=== PATIENT | female | born 1960 | race Caucasian/White ===

== ENCOUNTER 2019-09-09 09:40 | Outpatient (CLI) | payer OTHER, SELFPAY ==
--- NOTE | ~2019-09-09 | CT_ITS ---
EXAMINATION: CT lung screening DATE: 09/09/2019 10:02 INDICATION: Z87.891 Personal history of nicotine dependence TECHNIQUE: Computed tomography (CT) of the chest was performed without intravenous contrast. Addition al 3D reconstructions utilizing coronal maximum intensity projection (MIP) were performed. Automated exposure control and iterative reconstruction technique were employed. The dose-length product was 11 7.46 mGy-cm. COMPARISON: None FINDINGS: Small calcified nodule in the lingula consistent with old granulomatous disease. There are few additi onal scattered <3 mm noncalcified pulmonary nodules in both lungs predominantly in the upper lobes. T here are a few small ill-defined groundglass nodules without evident solid component in the right upp er lobe on the the largest measuring approximately 9 mm. Mild discoid atelectasis in the right lower lobe. No pulmonary edema or pleural effusion. Heart size is normal. No pericardial effusion. Thoracic aorta is normal in caliber with no dissection. No pathologically enlarged thoracic lymphadenopathy. Approximately 5 mm hypodense likely proteinaceous/hemorrhagic cyst at the upper pole of the right kid faina. Visualized upper abdomen is otherwise unremarkable. Mild thoracic spondylosis with chronic mild anterior wedging at T6 and T7. IMPRESSION: 1. A few scattered tiny solid and <10 mm groundglass nodules. Lung-RADS category 2: Benign appearance or behavior. Continue annual screening with noncontrast low-dose chest CT in 12 months. Reviewed, dictated and finalized at location A. STRY HUNTER IMPRESSION: 1. A few scattered tiny solid and <10 mm groundglass nodules. Lung-RADS categor y 2: Benign appearance or behavior. Continue annual screening with noncontrast low-dose chest CT in 12 months.
--- NOTE | 2019-09-11 00:04 | WPDPFTINT ---
PFT Interpretation PFT Interpretation: DOS: 09/09/2019 REQUESTING: Dr Sheppard REASON FOR TESTING: COPD, shortness of breath PULMONARY FUNCTION TESTS Results are reproducible. Spirometry: Normal FEV1, FVC, with reduced FEV1%. Extremely low NMH52-08%. After bronchodilator, there is no change in flows. Lung volumes: Mild hyperinflation, TLC 130%. Moderate air trapping, RV is 141%. Increased airway resistance, 192%. Diffusion: DLCO normal 92%. Flow volume loop: Normal after bronchodilator administered. IMPRESSION: Mild obstructive ventilatory impairment with a severe small airways pattern, no response to bronchodilators, with mild hyperinflation and moderate air trapping. Lack of response to bronchodilator should not preclude use if clinically indicated. Jeanne Sheppard MD
== END 2019-09-09 09:41 | disposition home or self-care (01) ==
PROVIDERS: Visit Provider Internal Medicine Critical Care Medicine
DX: J44.9 Chronic obstructive pulmonary disease, unspecified (principal); Z12.2 Encounter for screening for malignant neoplasm of respiratory organs; R91.8 Other nonspecific abnormal finding of lung field; Z87.891 Personal history of nicotine dependence
CPT/HCPCS: 94060; 94726; 94729; G0297

== ENCOUNTER → 2020-09-15 10:19 | Outpatient (CLI) | payer OTHER, SELFPAY ==
--- NOTE | ~2020-09-15 | XR_ITS ---
EXAMINATION: XR hip BI 2V w AP pelvis DATE: 09/15/2020 10:51 INDICATION: Bilateral inguinal hip pain TECHNIQUE: AP view of the pelvis and two views of each hip were obtained. COMPARISON: None. FINDINGS: Bone alignment is normal. There is no fracture. There is moderate right and moderate to sev ere left hip osteoarthritis. Phleboliths are noted in the pelvis. IMPRESSION: 1. Bilateral hip osteoarthritis. Reviewed, dictated and finalized at location A. CAL CLAIMS ANALYST
== END ==
PROVIDERS: PCP Physician Assistant; Visit Provider Physician Assistant
DX: M16.0 Bilateral primary osteoarthritis of hip (principal)
CPT/HCPCS: 73521

== ENCOUNTER 2020-10-19 11:05 | Outpatient (CLI) | payer OTHER, SELFPAY ==
--- NOTE | ~2020-10-19 | CT_ITS ---
EXAMINATION: CT lung screening DATE: 10/19/2020 11:29 INDICATION: Personal history of nicotine dependence, prior smoker with 40 pack year history TECHNIQUE: Computed tomography (CT) of the chest was performed without intravenous contrast. The dose -length product (DLP) was 159.20 mGy-cm. Automated exposure control and iterative reconstruction tech [employer] were employed. COMPARISON: 09/09/2019 FINDINGS: There is mild emphysema. There is a stable 9 mm nonsolid nodule of the right upper lobe. No new pulmonary nodules are identified. A few tiny scattered 1 to 2 mm nodules in the upper lobes are unchanged. There is no pleural effusion or pneumothorax. No pathologically enlarged thoracic lymph no kimmy are identified. The heart size is normal. There is mild thoracic spondylosis. IMPRESSION: 1. Lung-RADS category 2: Benign appearance or behavior. Continue annual screening with noncontrast lo w-dose chest CT in 12 months. Reviewed, dictated and finalized at location B. IMPRESSION: 1. Lung-RADS category 2: Benign appearance or behavior. Continue annual screeni ng with noncontrast low-dose chest CT in 12 months.
== END 2020-10-19 11:06 | disposition home or self-care (01) ==
PROVIDERS: PCP Physician Assistant; Visit Provider Nurse Practitioner Family
DX: Z12.2 Encounter for screening for malignant neoplasm of respiratory organs (principal); Z87.891 Personal history of nicotine dependence
CPT/HCPCS: 71271

== ENCOUNTER 2020-11-02 07:41 | Outpatient (CLI) | payer OTHER, SELFPAY ==
--- NOTE | ~2020-11-02 | XR_ITS ---
EXAMINATION: XR lg joint inject/asp w image DATE: 11/02/2020 08:53 INDICATION: Right hip arthritis. TECHNIQUE: A time-out was performed to verify the patient's name, date of , and procedure to b e performed. The procedure including the risks, benefits, and alternatives was discussed with the pat ient. Risks discussed included bleeding and infection. The patient understood the risks and agreed to proceed. The skin overlying the right hip joint was prepped and draped in usual sterile fashion. A nesthetic was administered with 1% lidocaine subcutaneously. A 22 G needle was advanced under fluoro scopic guidance into the joint. Injection of 1 mL of Omnipaque 240 confirmed intra-articular positio n of the needle. Subsequently, injectate consisting of 2 mL 0.5% bupivacaine and 1 mL 80 mg/mL Depo- Medrol was instilled. The needle was removed and the entry site was cleaned and dressed. There were no immediate complications. Fluoroscopy exposure time was 0.0 minutes. The total number of images wa s 2. FINDINGS: Real-time fluoroscopy demonstrates the needle in the right hip joint. Patient's pain prior to procedure:07/18. Patient's pain following the procedure: 07/18. IMPRESSION: 1. Fluoroscopy guided right hip joint injection of local anesthetic and steroid . Reviewed, dictated and finalized at location A.
--- NOTE | ~2020-11-02 | XR_ITS ---
EXAMINATION: XR lg joint inject/asp add DATE: 11/02/2020 08:58 INDICATION: Left hip arthritis. TECHNIQUE: A time-out was performed to verify the patient's name, date of , and procedure to b e performed. The procedure including the risks, benefits, and alternatives was discussed with the pat ient. Risks discussed included bleeding and infection. The patient understood the risks and agreed to proceed. The skin overlying the left hip joint was prepped and draped in usual sterile fashion. An esthetic was administered with 1% lidocaine subcutaneously. A 22 G needle was advanced under fluoros copic guidance into the joint. Injection of 1 mL of Omnipaque 240 confirmed intra-articular position of the needle. Subsequently, injectate consisting of 2 mL 0.5% bupivacaine and 1 mL 80 mg/mL Depo-M edrol was instilled. The needle was removed and the entry site was cleaned and dressed. There were no immediate complications. Fluoroscopy exposure time was 0.0 minutes. The total number of images was 2. FINDINGS: Real-time fluoroscopy demonstrates the needle in the left hip joint. Patient's pain prior t o procedure:07/18. Patient's pain following the procedure: 07/18. IMPRESSION: 1. Fluoroscopy guided left hip joint injection of local anesthetic and steroid . Reviewed, dictated and finalized at location A.
== END 2020-11-02 07:42 | disposition home or self-care (01) ==
PROVIDERS: PCP Physician Assistant; Visit Provider Nurse Practitioner Family
DX: M17.0 Bilateral primary osteoarthritis of knee (principal)
CPT/HCPCS: 20610; 77002; J1040; Q9966

== ENCOUNTER 2021-01-20 09:40 | Outpatient (CLI) | payer OTHER, SELFPAY ==
--- NOTE | ~2021-01-20 | XR_ITS ---
EXAMINATION: XR lg joint inject/asp w image DATE: 01/20/2021 10:27 INDICATION: Right hip arthritis. TECHNIQUE: A time-out was performed to verify the patient's name, date of , and procedure to b e performed. The procedure including the risks, benefits, and alternatives was discussed with the pat ient. Risks discussed included bleeding and infection. The patient understood the risks and agreed to proceed. The skin overlying the right hip joint was prepped and draped in usual sterile fashion. A nesthetic was administered with 1% lidocaine subcutaneously. A 22 G needle was advanced under fluoro scopic guidance into the joint. Injection of 1 mL of Omnipaque 240 confirmed intra-articular positio n of the needle. Subsequently, injectate consisting of 2 mL 0.5% bupivacaine and 1 mL 80 mg/mL Depo- Medrol was instilled. The needle was removed and the entry site was cleaned and dressed. There were no immediate complications. Fluoroscopy exposure time was 0.0 minutes. The total number of images wa s 2. FINDINGS: Real-time fluoroscopy demonstrates the needle in the right hip joint. Patient's pain prior to procedure:04/17. Patient's pain following the procedure: 11/15. IMPRESSION: 1. Fluoroscopy guided right hip joint injection of local anesthetic and steroid with decrease in the patient's presenting pain. Reviewed, dictated and finalized at location A.
--- NOTE | ~2021-01-20 | XR_ITS ---
EXAMINATION: XR lg joint inject/asp add DATE: 01/20/2021 10:28 INDICATION: Left hip arthritis. TECHNIQUE: A time-out was performed to verify the patient's name, date of , and procedure to b e performed. The procedure including the risks, benefits, and alternatives was discussed with the pat ient. Risks discussed included bleeding and infection. The patient understood the risks and agreed to proceed. The skin overlying the left hip joint was prepped and draped in usual sterile fashion. An esthetic was administered with 1% lidocaine subcutaneously. A 22 G needle was advanced under fluoros copic guidance into the joint. Injection of 1 mL of Omnipaque 240 confirmed intra-articular position of the needle. Subsequently, injectate consisting of 2 mL 0.5% bupivacaine and 1 mL 80 mg/mL Depo-M edrol was instilled. The needle was removed and the entry site was cleaned and dressed. There were no immediate complications. Fluoroscopy exposure time was 0.0 minutes. The total number of images was 2. FINDINGS: Real-time fluoroscopy demonstrates the needle in the left hip joint. Patient's pain prior t o procedure:11/15. Patient's pain following the procedure: 07/18. IMPRESSION: 1. Fluoroscopy guided left hip joint injection of local anesthetic and steroid with decrease in the p atient's presenting pain. Reviewed, dictated and finalized at location A. IMPRESSION: 1. Fluoroscopy guided left hip joint injection of local anesthetic and steroid with decrease in the patient's presenting pain.
== END 2021-01-20 09:41 | disposition home or self-care (01) ==
LOC: ANHIMG 09:41
PROVIDERS: PCP Physician Assistant; Visit Provider Nurse Practitioner Family
DX: M16.0 Bilateral primary osteoarthritis of hip (principal)
CPT/HCPCS: 20610; 77002; Q9966

== ENCOUNTER 2021-04-12 07:56 | Outpatient (CLI) | payer OTHER, SELFPAY ==
--- NOTE | 2021-04-12 08:55 | ECG_ITS ---
Measurements Intervals [place] Rate: 69 P: 64 CO: 149 QRS: -5 QRSD: 101 T: 35 QT: 386 QTc: 414 Interpretive Statements SINUS RHYTHM POSSIBLE LEFT ATRIAL ENLARGEMENT INCOMPLETE RIGHT BUNDLE BRANCH BLOCK DELAYED PRECORDIAL R/S TRANSITION BASELINE ARTIFACT- I, II, AVR, AVL BORDERLINE ECG Electronically Signed On 04-12-2021 9:19:12 CDT by Yasir Navas D.O.
[2021-04-12 09:48] LABS: Add Urine Microscopic? YES; Appearance Urine Clear (Clear); Bilirubin Urine Negative (Negative); Color Urine Amber (Yellow); Glucose Urine UA Negative (Negative); INR 0.8; Ketones Urine Negative (Negative); Leukocyte Esterase Ur Trace LEU/UL (Negative); Mucus Urine Rare /lpf; Nitrate Urine Negative (Negative); Protein Urine 1+ mg/dL (Negative); Prothrombin Time 11.4 Seconds (11.1-14.7); Specific Grav Ur 1.018 (1.001-1.035); Squamous Epithelial Cell Urine Rare /hpf (Few); Urobilinogen Urine Negative mg/dL (<2.0)
[2021-04-12 09:49] LABS: Partial Thromboplastin Time 27.2 SECONDS (22.3-36.8)
[2021-04-12 09:50] LABS: Basophils Absolute Auto 0.1 K/mm3 (0.0-0.1); Eosinophils Absolute Auto 0.2 K/mm3 (0-0.3); Eosinophils Percent Auto 3.9 % (0-4.4); Hematocrit 42.7 % (37.0-47.0); Hemoglobin 14.4 g/dL (12.0-15.0); Immature Granulocyte Absolute 0.02 K/mm3 (0.00-0.031); Immature Granulocyte Percent A 0.3 % (0-0.5); Lymphocytes Absolute Auto 1.43 K/mm3 (0.9-3.2); Lymphocytes Percent Auto 23.4 % (18.3-44.2); Mean Corpuscular HGB Conc 33.7 g/dl (32-36); Mean Corpuscular Hemoglobin 32.9 pg (26-34); Mean Corpuscular Volume 97.5 fl (80-100); Mean Platelet Volume 9.8 fl (7.4-10.4); Monocytes Absolute Auto 0.4 K/mm3 (0.1-0.6); Neutrophils Absolute Auto 3.9 K/mm3 (1.3-6.7); Neutrophils Percent Auto 64.4 % (45.5-73.1); Platelet Count Result 277 k/mm3 (150-375); Red Blood Count 4.38 M/mm3 (4.2-5.4); Red Cell Distribution Width 12.3 % (11.5-14.5); White Blood Count 6.1 K/mm3 (4.5-10.0)
[2021-04-12 09:51] LABS: Albumin Level 4.5 g/dL (3.5-5.1); Anion Gap 6 mmol/L (8-16); Blood Urea Nitrogen 17 mg/dL (7-17); Calcium 10.1 mg/dL (8.4-10.2); Carbon Dioxide 31 mmol/L (22-30); Chloride 104 mmol/L (98-107); Estimated Glomerular Filt Rate > 60; Glucose 94 mg/dL (65-110); Potassium 3.6 mmol/L (3.4-5.0); Sodium 141 mmol/L (137-145)
[2021-04-12 10:10] LABS: Blood Urine Negative (Negative)
[2021-04-12 16:19] LABS: Urine Cotinine NEGATIVE
== END 2021-04-12 07:57 | disposition home or self-care (01) ==
LOC: ANHSURGERY 08:00
PROVIDERS: PCP Physician Assistant; Visit Provider Orthopaedic Surgery
DX: Z01.818 Encounter for other preprocedural examination (principal); M16.11 Unilateral primary osteoarthritis, right hip; I45.10 Unspecified right bundle-branch block; Z51.81 Encounter for therapeutic drug level monitoring; Z79.899 Other long term (current) drug therapy
CPT/HCPCS: 80048; 80307; 81001; 82040; 83036; 85025; 85610; 85730; 86850; 86900; 86901; 87081; 87086; 93005

== ENCOUNTER 2021-04-19 01:22 | Day surgery (SDC) | payer OTHER, SELFPAY ==
[2021-04-12 08:15] VITALS: BP 155/99; PULSE 75; RESP 18; TEMP 36.4; O2SAT 94; BMI 28.3
--- NOTE | 2021-04-18 15:41 | WPDANESEPPF ---
Anes - Initial Pre Proc Eval Procedure: Operation Date: 04/19/21 11:30 Proposed Procedures p Right Total Hip Arthroplasty - Brenden Otero MD Date/Time: 04/18/21 15:41 Surgeon: Brenden Otero MD Pre Op Diagnosis: Right Hip DJD Patient Data Age: 61 Gender: F Height: 1.7 m Weight: 82.1 kg Last Vital Signs Temp 36.4 C L 04/12/21 08:15 Pulse 75 04/12/21 08:15 Resp 18 04/12/21 08:15 BP 155/99 H 04/12/21 08:15 Pulse Ox 94 04/12/21 08:15 Allergies Allergy/AdvReac Type Severity Reaction Status Date / Time doxycycline Allergy Severe Hives Verified 04/19/21 09:37 Home Medications Medication Instructions Recorded Confirmed Type albuterol sulfate 90 mcg/actuation 1 inhalation INHALATION Q4H PRN 08/13/19 04/19/21 History aerosol inhaler budesonide-formoterol [Symbicort] 2 puff INHALATION BID 10/01/20 04/19/21 History chlorhexidine gluconate 4 % 1 applic TOPICAL ONCE #237 ml 03/29/21 04/15/21 Rx topical liquid meloxicam 7.5 mg tablet 15 mg PO DAILY 04/08/21 04/19/21 History acetaminophen [Tylenol Arthritis] 1,300 mg PO Q12H PRN 04/12/21 04/19/21 History naproxen sodium [Aleve] 440 mg PO BID PRN 04/12/21 04/19/21 History sulfamethoxazole 800 1 tablet PO BID 10 Days #20 tablet 04/12/21 04/15/21 Rx mg-trimethoprim 160 mg tablet umeclidinium [Incruse Ellipta] 1 inhalation INHALATION QAM 04/12/21 04/19/21 History Patient hx anesthesia problems: none Family hx anesthesia problems: none Results Review: All pre-operative results and documents have been reviewed as part of the pre-operative evaluation. [facility] Past Medical History Medical History Arthritis Asthma Bilateral hip pain COPD (chronic obstructive pulmonary disease) Degenerative joint disease (DJD) of hip Eczema History of tobacco abuse Hoarseness Shortness of Breath Wears glasses Family History Family History Mother COPD (chronic obstructive pulmonary disease) Diabetes mellitus Bladder cancer Father COPD (chronic obstructive pulmonary disease) Other Arthritis Asthma Social History Social History Social History: Patient quit smoking May 2020 Smoking packs per day: 1 Smoking cigarettes per day: 20.0 Years smoked: 40 Smoking pack-years: 40.00 Tobacco type: cigarettes Smoking end date: 05/09/20 Alcohol intake: current Drinks per week: 4 Substance use: never Living arrangements: with family Additional living arrangements comments: [facility] Gender identity (if verbalized by the patient): Female Spiritual care concerns: No Anes - Eval Final PreProcedure Day of Procedure 04/18/21 15:41 Patient weight: overweight Heart: regular rate and rhythm Lungs: clear to auscultation and normal air movement Airway: Mallampati scale class II Neurological: alert and oriented Last oral intake: >/= 8 hours ASA classification: III Emergent: no Anesthetic plan: proceed Anesthesia type and monitoring: general LMA and ETT Results Review: All pre-operative results and documents have been reviewed as part of the pre-operative evaluation. Informed Consent: The patient's anesthetic plan and its attendant risks and benefits were discussed with the patient/family/POA. Questions were solicited and answers provided to the satisfaction of the patient/family/POA.
[2021-04-19] VITALS (21 sets, daily range): BP systolic 94–137; BP diastolic 54–82; PULSE 66–88; RESP 12–18; TEMP 36–36.7; O2SAT 93–100
--- NOTE | ~2021-04-19 | XR_ITS ---
EXAMINATION: XR hip RT 1V EXAM DATE: 04/19/2021 14:00 INDICATION: Right hip total arthroplasty. Post procedure. TECHNIQUE: Single frontal postoperative right hip imaged obtained. There is no prior study for lovely johnson. FINDINGS: Status post right hip arthroplasty, hardware in position on this frontal image. Small amoun t of subcutaneous gas. There are no acute fractures identified. IMPRESSION: Right hip arthroplasty in position. Reviewed, dictated and finalized at location A.
--- NOTE | 2021-04-19 07:27 | WPDHPUPDATE1 ---
History and Physical Update Update Date/Time: 04/19/21 07:27 History and Physical has been reviewed, including an updated exam of the patient. There are NO changes in the patient's condition. Risks, benefits, and alternatives have been discussed and questions answered. Patient agrees to proceed with procedure.
[2021-04-19] MEDS: ACETAMINOPHEN 500 MG TABLET 1000 MG PO (09:42)
[2021-04-19] MEDS: LACTATED RINGERS 1,000 ML 30 ML IV CONT ×2 (10:09→13:27)
[2021-04-19] MEDS: TRANEXAMIC ACID 1,000MG/ISO100 1,000 MG/100 ML BAG 200 MG IVPB (10:13)
[2021-04-19] MEDS: ceFAZolin 2 GM/D5W 50 ML 2 GM/50 ML BAG IVPB ×2 (11:07→18:13)
[2021-04-19] MEDS: TRANEXAMIC ACID 1,000 MG/10 ML AMPUL 1000 MG IV PUSH (13:17)
--- NOTE | 2021-04-19 13:27 | W.PM.PROC2 ---
Procedure Note - Detailed Date of Procedure 04/19/21 Pre-op Diagnosis Right Hip DJD Post-op Diagnosis same Procedure Performed R WILL Surgeon Brenden Otero MD Anesthesia general Description of Procedure THE PATIENT WAS TAKEN TO THE OPERATING ROOM IN STABLE CONDITION AND WAS PLACED IN THE LATERAL DECUBITUS AND THE RIGHT LOWER EXTREMITY WAS PREPPED AND DRAPED IN THE STERILE FASHION. INCISION WAS MADE IN THE POSTERIOR LATERAL SIDE OF THE HIP, DOWN TO THE FASCIA LAYER. THE FASCIA WAS INCISED. THE HIP WAS EXPOSED. THE SHORT EXTERNAL ROTATORS WERE EXPOSED. THE SCIATIC NERVE WAS IDENTIFIED. INCISION WAS MADE THROUGH THE SHORT EXTERNAL ROTATORS AND THE CAPSULE OF THE HIP JOINT. THE HIP WAS DISLOCATED. AN OSTEOTOMY WAS MADE TO THE FEMORAL NECK ABOUT 1 CM PROXIMAL TO THE LESSER TROCHANTER. THE ACETABULUM WAS EXPOSED. THERE WAS SEVERE DJD SEEN. BEGINNING WITH A 44 REAMER THE ACETABULUM WAS REAMED TO 51 MM. A 51 MM TRIAL WAS PLACED IN 35 DEG OF ABDUCTION AND ANTEVERSION WAS IN ALIGNMENT WITH THE TRANS ACETABULAR LIGAMENT. THE FIT WAS EXCELLENT. THE TRIAL WAS REMOVED. A 52 MM BIOMET G7 COMPONENT WAS THEN TAPPED IN TO PLACE IN 35 DEG OF ABDUCTION AND ANTEVERSION IN ALIGNMENT WITH THE TRANSVERSE ACETABULAR LIGAMENT. THE FIT WAS EXCELLENT. THE ACETABULAR LINER WAS PLACED AND CHECKED FOR STABILITY. NEXT THE FEMUR WAS PREPARED WITH INITIAL CANAL FINDER THEN SEQUENTIAL BROACHING WITH A TAPERLOC HIP SYSTEM, UNTIL A 11 BROACH FIT WELL IN 15 OF ANTEVERSION. A +3 HIGH OFFSET NECK WITH 36 MM HEAD TRIAL WAS PLACED. THE SHUCK TEST WAS EXCELLENT AND THE STABILITY IN FLEXION AND ROTATION WAS EXCELLENT. LEG LENGTHS WERE GROSSLY EQUAL. TRIALS WERE REMOVED. A BIOMET TAPERLOC 11 STEM WAS PLACED WITH A HIGH OFFSET NECK THE FIT WAS EXCELLENT IN 15 DEG OF ANTEVERSION. A +3 CERAMIC 36 MM FEMORAL HEAD WAS PLACED. THE HIP WAS TRIALED AND THE STABILITY WAS EXCELLENT WERE THE LEG LENGTHS AND THE SHUCK TEST. THE WOUND WAS IRRIGATED WITH STERILE BETADINE AND WATER FOR 3 MIN. THEN WASHED AGAIN. THE CAPSULE AND THE EXTERNAL ROTATORS WERE APPROXIMATED WITH NUMBER 1 VICRYL. THE FASCIA WITH No 2 QUIL AND THE SUB CUTANEOUS LAYER WITH 2-0 ABSORBABLE SUTURE WITH A RUNNING 3-0 SUBCUTICULAR LAYER WELL. DERMABOND WAS PLACED AND STERILE DRESSING WAS APPLIED. PATIENT WAS PLACED BACK ON TO THE SUPINE POSITION AND WAS EXTUBATED Estimated Blood Loss 200 Complications No immediate complications Condition stable Disposition PACU
[2021-04-19] MEDS: fentaNYL CITRATE INJ (*CRX) 100 MCG/2 ML VIAL 25 MCG IV PUSH ×8 (13:32→13:53)
[2021-04-19] MEDS: HYDROmorphone HCL INJ (*CRX) 1 MG/ML SYR 0.5 MG IV PUSH ×4 (13:58→14:28)
--- NOTE | 2021-04-19 13:58 | SUR.PHASEI ---
1355 1 VIEW XRAY TAKEN OF RT HIP IN PACU.
[2021-04-19] MEDS: KETOROLAC 30 MG/ML VIAL (*BKC) IV PUSH (14:21)
[2021-04-19] MEDS: diazePAM INJ (*CRX) 10 MG/2 ML SYRINGE 5 MG IV PUSH (14:36)
[2021-04-19] MEDS: hydrOXYzine pamoate 25 MG CAPSULE 50 MG PO (15:24)
--- NOTE | 2021-04-19 16:45 | ADMGEN ---
This patient, Emperatriz Crowell, was admitted to 2 Medical Room 259-01. Patient/family oriented to hospital policies and general routines including ID bracelet, bed and alarms, visiting hours, pain management, procedures, bathroom and other care routines, personal items, smoking policy, room service/diet, and visiting hours. Information on how to activate the Rapid Response Team has been discussed. Patient/Family are encouraged to report perceived risks to care and to ask questions if they do not understand what they are told or what they should do.
[2021-04-19 16:56] LABS: Hematocrit 38.6 % (37.0-47.0); Hemoglobin 12.9 g/dL (12.0-15.0)
[2021-04-19] MEDS: DOCUSATE SODIUM 100 MG CAPSULE PO (18:13)
[2021-04-19] MEDS: HYDROcodone/acetaminophen (*CRX) 7.5-325 MG TABLET 1 TAB PO ×2 (18:25→23:18)
[2021-04-19] MEDS: KETOROLAC 15 MG/ML VIAL (*BKC) IV PUSH (18:26)
[2021-04-20] MEDS: KETOROLAC 15 MG/ML VIAL (*BKC) IV PUSH ×3 (00:31→11:19)
[2021-04-20] MEDS: ceFAZolin 2 GM/D5W 50 ML 2 GM/50 ML BAG IVPB ×2 (03:14→11:19)
[2021-04-20 03:18] VITALS: BP 98/58; PULSE 76; RESP 17; TEMP 36.7; O2SAT 96
[2021-04-20 05:42] LABS: Basophils Percent Auto 0.4 % (0.2-1.2); Eosinophils Percent Auto 0.1 % (0-4.4); Hematocrit 32.5 % (37.0-47.0); Hemoglobin 10.8 g/dL (12.0-15.0); Immature Granulocyte Absolute 0.03 K/mm3 (0.00-0.031); Immature Granulocyte Percent A 0.3 % (0-0.5); Lymphocytes Absolute Auto 1.22 K/mm3 (0.9-3.2); Lymphocytes Percent Auto 12.3 % (18.3-44.2); Mean Corpuscular HGB Conc 33.2 g/dl (32-36); Mean Corpuscular Hemoglobin 33.4 pg (26-34); Mean Corpuscular Volume 100.6 fl (80-100); Mean Platelet Volume 9.7 fl (7.4-10.4); Monocytes Absolute Auto 0.7 K/mm3 (0.1-0.6); Monocytes Percent Auto 7.1 % (2.6-8.5); Neutrophils Absolute Auto 7.9 K/mm3 (1.3-6.7); Neutrophils Percent Auto 79.8 % (45.5-73.1); Platelet Count Result 221 k/mm3 (150-375); Red Blood Count 3.23 M/mm3 (4.2-5.4); Red Cell Distribution Width 12.7 % (11.5-14.5); White Blood Count 9.9 K/mm3 (4.5-10.0)
[2021-04-20 05:55] LABS: Anion Gap 7 mmol/L (8-16); Blood Urea Nitrogen 16 mg/dL (7-17); Calcium 9.1 mg/dL (8.4-10.2); Carbon Dioxide 24 mmol/L (22-30); Chloride 101 mmol/L (98-107); Estimated CRCL calculation 70 ml/min; Estimated Glomerular Filt Rate > 60; Glucose 126 mg/dL (65-110); Sodium 132 mmol/L (137-145)
[2021-04-20] MEDS: HYDROcodone/acetaminophen (*CRX) 7.5-325 MG TABLET 1 TAB PO (06:04)
[2021-04-20 08:00] VITALS: BP 112/60; PULSE 88; RESP 18; TEMP 36.7; O2SAT 96
[2021-04-20] MEDS: ASPIRIN 325 MG ENTERIC TABLET 650 MG PO (08:32)
[2021-04-20] MEDS: DOCUSATE SODIUM 100 MG CAPSULE PO (08:32)
[2021-04-20 12:00] VITALS: BP 114/67; PULSE 81; RESP 16; TEMP 36.8; O2SAT 98
[2021-04-20] MEDS: ACETAMINOPHEN 325 MG TABLET 650 MG PO (13:22)
== END 2021-04-20 14:01 | disposition home health service (06) ==
LOC: ANHSURGERY 15:06 → ANH2MED 16:36
PROVIDERS: PCP Physician Assistant; Visit Provider Orthopaedic Surgery
PROC: (CPT 27130; principal; 2021-04-19 11:30)
DX: M16.11 Unilateral primary osteoarthritis, right hip (principal); J44.9 Chronic obstructive pulmonary disease, unspecified; L30.9 Dermatitis, unspecified; Z79.51 Long term (current) use of inhaled steroids; Z87.891 Personal history of nicotine dependence; Z23 Encounter for immunization
CPT/HCPCS: 27130; 36415; 73501; 80048; 80307; 81001; 82040; 83036; 85014; 85018; 85025; 85610; 85730; 86850; 86900; 86901; 87081; 87086; 90471; 90653; 93005; 97110; 97116; 97162; 97165; 97530; A9270; C1776; G0008; J0171; J0690; J1100; J1170; J1885; J2250; J2270; J2405; J2704; J2710; J2795; J3010; J3360; J7120

== ENCOUNTER 2021-05-20 09:57 | Outpatient (CLI) | payer OTHER, SELFPAY ==
[2021-05-20 10:50] LABS: Hematocrit 40.7 % (37.0-47.0); Hemoglobin 13.3 g/dL (12.0-15.0)
[2021-05-20 11:01] LABS: Anion Gap 7 mmol/L (8-16); Blood Urea Nitrogen 18 mg/dL (7-17); Carbon Dioxide 30 mmol/L (22-30); Chloride 104 mmol/L (98-107); Estimated Glomerular Filt Rate > 60; Glucose 94 mg/dL (65-110); Potassium 3.7 mmol/L (3.4-5.0); Sodium 141 mmol/L (137-145)
== END 2021-05-20 09:58 | disposition home or self-care (01) ==
LOC: ANHSURGERY 10:05
PROVIDERS: PCP Physician Assistant; Visit Provider Orthopaedic Surgery
DX: Z01.812 Encounter for preprocedural laboratory examination (principal); M16.9 Osteoarthritis of hip, unspecified; Z51.81 Encounter for therapeutic drug level monitoring; Z79.899 Other long term (current) drug therapy
CPT/HCPCS: 36415; 80048; 85014; 85018; 86850; 86900; 86901

== ENCOUNTER 2021-05-24 01:09 | Day surgery (SDC) | payer OTHER, SELFPAY ==
[2021-05-16 10:10] VITALS: BMI 28.3
--- NOTE | 2021-05-16 10:21 | PC.NURSE ---
Report to the Outpatient Waiting Room, entrance under the green pavilion located off [facility], at time _0900__ on date 05/24/21_. OR Time: _1100__. - You and your visitor will be asked a series of questions to screen for COVID 19 for your protection. - A mask is required within the hospital. - Only one visitor is allowed at this time. Patient visitors will be guided where to wait when not with patient. Preoperative COVID Testing Requirements: No COVID Test needed if: (proof is required; if not received patient will have Rapid Test prior to entry) - Patient has received COVID Vaccine at least 14 days prior to procedure date or - Patient has positive COVID test result within last 90 days of surgery date. COVID Test needed if above criteria is not met If not COVID vaccinated a COVID test must be conducted within 72 hours of surgery and patient is asked to isolate self from time of testing until procedure. You will go to the [facility] for your COVID testing. The [facility] site is located at the corner of [address] [facility]. You will only be called if COVID results are positive and your surgeon may reschedule your elective surgery date. Patients may have clear liquids (water, carbonated beverages, clear teas, apple juice) until 3 hours prior to surgery (0800) with a maximum of 20 ounces. - No food from midnight until time of surgery - Infants may have breast milk until 4 hours before surgery, infant formula 6 hours prior to surgery. - Children will be allowed to drink immediately following surgery. If applicable, please bring a bottle or sippy cup to assist with drinking. Juice, water, soda, and popsicles are readily available. For infants on formula, please bring formula the day of surgery. Pacifiers are allowed. Take the following medications with a SIP of water the morning of surgery: _SYMBICORT, INCRUSE ELLIPTA, ALBUTEROL INHALER, VALIUM & TYLENOL IF NEEDED____ Medications to discontinue per physician _ALEVE & MELOXICAM PER DR. HENDRICKSON Date to take last dose Please no make-up, nail lithuanian, hairspray, perfume, deodorant, or body powder the day of surgery. No jewelry (including any body piercings) or valuables the day of surgery, leave them at home. Please take a shower or bath the night before, or the morning of, surgery with an antibacterial soap. Wear comfortable, loose fitting clothing. Children are encouraged to wear pajamas. - Jewelry must be removed prior to entering the operating room. Rings and piercings that are not removed may be cut off. - The hospital will not accept responsibility for valuables. - Please leave all valuables, including medications, at home the day of surgery. If you are going home after surgery, a licensed roll off driver must drive you home. - NO public transportation without another adult. - We recommend that an adult stay with you for 24 hours following discharge. - We also recommend that you do not drive, make important decision, drink alcoholic beverages, or take any drugs that were not prescribed by your health care provider for at least 24 hours after your discharge time. For Pediatric surgeries, we recommend two adults accompany the child home (only one inside the building at this time). Follow any additional instructions given to you from your surgeon. CHLORHEXIDINE SCRUB DIRECTED Telephone instructions given to __PT___and asked if any additional questions and then verbalized understanding. Patient advised to call surgeon office or pre surgery nurse liaison [phone] if any additional questions.
--- NOTE | 2021-05-23 13:37 | PCCCNOTE ---
Phone call to Dr. Otero's office [facility], she states that she does have a authorization number [id number], she will fax over the preop check list that has the fax #.
--- NOTE | 2021-05-23 13:56 | WPDANESEPPF ---
Anes - Initial Pre Proc Eval Procedure: Operation Date: 05/24/21 11:00 Proposed Procedures p Left Total Hip Arthroplasty - Brenden Otero MD Date/Time: 05/23/21 13:56 Surgeon: Brenden Otero MD Pre Op Diagnosis: Left Hip DJD Patient Data Age: 61 Gender: F Height: 1.7 m Weight: 82 kg Allergies Allergy/AdvReac Type Severity Reaction Status Date / Time doxycycline Allergy Severe Hives Verified 05/24/21 10:13 Home Medications Medication Instructions Recorded Confirmed Type albuterol sulfate 90 mcg/actuation 1 inhalation INHALATION Q4H PRN 08/13/19 05/24/21 History aerosol inhaler budesonide-formoterol [Symbicort] 2 puff INHALATION BID 10/01/20 05/24/21 History Incruse Ellipta 1 inhalation INHALATION QAM 04/12/21 05/24/21 History acetaminophen 1,300 mg PO Q12H PRN 04/12/21 05/24/21 History Patient hx anesthesia problems: none Family hx anesthesia problems: none Results Review: All pre-operative results and documents have been reviewed as part of the pre-operative evaluation. [facility] Past Medical History Medical History Arthritis Asthma Bilateral hip pain COPD (chronic obstructive pulmonary disease) Degenerative joint disease (DJD) of hip Eczema History of tobacco abuse Hoarseness Shortness of Breath Wears glasses Surgical History Surgical History S/P total right hip arthroplasty Family History Family History Mother COPD (chronic obstructive pulmonary disease) Diabetes mellitus Bladder cancer Father COPD (chronic obstructive pulmonary disease) Other Arthritis Asthma Social History Social History Social History: Patient quit smoking May 2020 Smoking packs per day: 1 Smoking cigarettes per day: 20.0 Years smoked: 43 Smoking pack-years: 43.00 Tobacco type: cigarettes Second hand tobacco smoke exposure: No Smoking end date: 04/27/20 Alcohol intake: current Drinks per week: 4 Substance use: never Substance use type: does not use Living arrangements: with family Additional living arrangements comments: HUSB Gender identity (if verbalized by the patient): Female Spiritual care concerns: No Anes - Eval Final PreProcedure Day of Procedure 05/23/21 13:56 Patient weight: overweight Heart: regular rate and rhythm Lungs: clear to auscultation and normal air movement Airway: Mallampati scale class II Neurological: alert and oriented Last oral intake: >/= 8 hours ASA classification: III Emergent: no Anesthetic plan: proceed Anesthesia type and monitoring: general ETT Results Review: All pre-operative results and documents have been reviewed as part of the pre-operative evaluation. Informed Consent: The patient's anesthetic plan and its attendant risks and benefits were discussed with the patient/family/POA. Questions were solicited and answers provided to the satisfaction of the patient/family/POA.
[2021-05-24] VITALS (14 sets, daily range): BP systolic 107–134; BP diastolic 69–89; PULSE 64–91; RESP 9–20; TEMP 36.1–37.1; O2SAT 94–100
--- NOTE | ~2021-05-24 | XR_ITS ---
EXAMINATION: XR hip LT 1V DATE: 05/24/2021 13:58 INDICATION: Left hip arthroplasty. Postop. TECHNIQUE: A single view of left hip was obtained. COMPARISON: Left hip radiographs 03/17/2021 FINDINGS: There is a total left hip arthroplasty in near-anatomic alignment. No fracture. There is ga s in the soft tissues, consistent with recent surgery. IMPRESSION: 1. Total left hip arthroplasty in near-anatomic alignment. Reviewed, dictated and finalized at location A. ER [employer]
--- NOTE | 2021-05-24 07:18 | WPDHPUPDATE1 ---
History and Physical Update Update Date/Time: 05/24/21 07:18 History and Physical has been reviewed, including an updated exam of the patient. There are NO changes in the patient's condition. Risks, benefits, and alternatives have been discussed and questions answered. Patient agrees to proceed with procedure.
[2021-05-24] MEDS: ACETAMINOPHEN 500 MG TABLET 1000 MG PO (10:16)
[2021-05-24] MEDS: LACTATED RINGERS 1,000 ML 30 ML IV CONT ×2 (10:20→13:46)
[2021-05-24] MEDS: TRANEXAMIC ACID 1,000MG/ISO100 1,000 MG/100 ML BAG 200 MG IVPB (10:24)
[2021-05-24] MEDS: ceFAZolin 2 GM/D5W 50 ML 2 GM/50 ML BAG IVPB ×2 (11:26→18:23)
[2021-05-24] MEDS: TRANEXAMIC ACID 1,000 MG/10 ML AMPUL 1000 MG IV PUSH (12:50)
--- NOTE | 2021-05-24 13:54 | W.PM.PROC2 ---
Procedure Note - Detailed Date of Procedure 05/24/21 Pre-op Diagnosis Left Hip DJD Post-op Diagnosis same Procedure Performed L WILL Surgeon Brenden Otero MD Anesthesia general Description of Procedure THE PATIENT WAS TAKEN TO THE OPERATING ROOM IN STABLE CONDITION AND WAS PLACED IN THE LATERAL DECUBITUS AND THE LEFT LOWER EXTREMITY WAS PREPPED AND DRAPED IN THE STERILE FASHION. INCISION WAS MADE IN THE POSTERIOR LATERAL SIDE OF THE HIP, DOWN TO THE FASCIA LAYER. THE FASCIA WAS INCISED. THE HIP WAS EXPOSED. THE SHORT EXTERNAL ROTATORS WERE EXPOSED. THE SCIATIC NERVE WAS IDENTIFIED. INCISION WAS MADE THROUGH THE SHORT EXTERNAL ROTATORS AND THE CAPSULE OF THE HIP JOINT. THE HIP WAS DISLOCATED. AN OSTEOTOMY WAS MADE TO THE FEMORAL NECK ABOUT 1 CM PROXIMAL TO THE LESSER TROCHANTER. THE ACETABULUM WAS EXPOSED. THERE WAS SEVERE DJD SEEN. BEGINNING WITH A 44 REAMER THE ACETABULUM WAS REAMED TO 51 MM. A 52 MM TRIAL WAS PLACED IN 35 DEG OF ABDUCTION AND ANTEVERSION WAS IN ALIGNMENT WITH THE TRANS ACETABULAR LIGAMENT. THE FIT WAS EXCELLENT. THE TRIAL WAS REMOVED. A 52 MM BIOMET G7 COMPONENT WAS THEN TAPPED IN TO PLACE IN 35 DEG OF ABDUCTION AND ANTEVERSION IN ALIGNMENT WITH THE TRANSVERSE ACETABULAR LIGAMENT. THE FIT WAS EXCELLENT. THE ACETABULAR LINER WAS PLACED AND CHECKED FOR STABILITY. NEXT THE FEMUR WAS PREPARED WITH INITIAL CANAL FINDER THEN SEQUENTIAL BROACHING WITH A TAPERLOC HIP SYSTEM, UNTIL A 13 BROACH FIT WELL IN 15 OF ANTEVERSION. A 0 HIGH OFFSET NECK WITH 36 MM HEAD TRIAL WAS PLACED. THE SHUCK TEST WAS EXCELLENT AND THE STABILITY IN FLEXION AND ROTATION WAS EXCELLENT. LEG LENGTHS WERE GROSSLY EQUAL. TRIALS WERE REMOVED. A BIOMET TAPERLOC 13 STEM WAS PLACED WITH A HIGH OFFSET NECK THE FIT WAS EXCELLENT IN 15 DEG OF ANTEVERSION. A 0 CERAMIC 36 MM FEMORAL CERAMIC HEAD WAS PLACED. THE HIP WAS TRIALED AND THE STABILITY WAS EXCELLENT WERE THE LEG LENGTHS AND THE SHUCK TEST. THE WOUND WAS IRRIGATED WITH STERILE BETADINE AND WATER FOR 3 MIN. THEN WASHED AGAIN. THE CAPSULE AND THE EXTERNAL ROTATORS WERE APPROXIMATED WITH NUMBER 1 VICRYL. THE FASCIA WITH No 2 QUIL AND THE SUB CUTANEOUS LAYER WITH 2-0 ABSORBABLE SUTURE WITH A RUNNING 3-0 SUBCUTICULAR LAYER WELL. DERMABOND WAS PLACED AND STERILE DRESSING WAS APPLIED. PATIENT WAS PLACED BACK ON TO THE SUPINE POSITION AND WAS EXTUBATED Estimated Blood Loss -200.0 Complications No immediate complications Condition stable Disposition PACU
[2021-05-24] MEDS: fentaNYL CITRATE INJ (*CRX) 100 MCG/2 ML VIAL 25 MCG IV PUSH ×8 (14:01→14:30)
[2021-05-24] MEDS: KETOROLAC 30 MG/ML VIAL (*BKC) IV PUSH (14:32)
[2021-05-24] MEDS: SODIUM CHLORIDE 0.9% IV 1,000 ML 125 ML IV CONT (15:35)
[2021-05-24] MEDS: HYDROcodone/acetaminophen (*CRX) 7.5-325 MG TABLET 1 TAB PO ×2 (17:31→20:21)
[2021-05-24] MEDS: SENNA/DOCUSATE SODIUM TABLET 2 TAB PO (17:44)
[2021-05-24] MEDS: KETOROLAC 15 MG/ML VIAL (*BKC) IV PUSH ×2 (18:22→23:34)
[2021-05-25 00:53] VITALS: BP 108/65; PULSE 78; RESP 14; TEMP 36.3; O2SAT 98
[2021-05-25] MEDS: ceFAZolin 2 GM/D5W 50 ML 2 GM/50 ML BAG IVPB ×2 (02:14→10:59)
[2021-05-25 04:54] VITALS: BP 101/61; PULSE 86; RESP 14; TEMP 36.1; O2SAT 96
[2021-05-25] MEDS: KETOROLAC 15 MG/ML VIAL (*BKC) IV PUSH (05:36)
[2021-05-25 05:39] LABS: Basophils Percent Auto 0.4 % (0.2-1.2); Eosinophils Percent Auto 0.4 % (0-4.4); Hematocrit 28.7 % (37.0-47.0); Hemoglobin 9.2 g/dL (12.0-15.0); Immature Granulocyte Absolute 0.02 K/mm3 (0.00-0.031); Immature Granulocyte Percent A 0.2 % (0-0.5); Lymphocytes Absolute Auto 1.44 K/mm3 (0.9-3.2); Lymphocytes Percent Auto 17.2 % (18.3-44.2); Mean Corpuscular HGB Conc 32.1 g/dl (32-36); Mean Corpuscular Volume 96.6 fl (80-100); Mean Platelet Volume 9.7 fl (7.4-10.4); Monocytes Absolute Auto 0.6 K/mm3 (0.1-0.6); Monocytes Percent Auto 6.9 % (2.6-8.5); Neutrophils Absolute Auto 6.3 K/mm3 (1.3-6.7); Neutrophils Percent Auto 74.9 % (45.5-73.1); Platelet Count Result 204 k/mm3 (150-375); Red Blood Count 2.97 M/mm3 (4.2-5.4); Red Cell Distribution Width 12.9 % (11.5-14.5); White Blood Count 8.4 K/mm3 (4.5-10.0)
[2021-05-25 06:03] LABS: Anion Gap 6 mmol/L (8-16); Blood Urea Nitrogen 12 mg/dL (7-17); Calcium 8.5 mg/dL (8.4-10.2); Carbon Dioxide 22 mmol/L (22-30); Chloride 105 mmol/L (98-107); Estimated CRCL calculation 81 ml/min; Estimated Glomerular Filt Rate > 60; Glucose 116 mg/dL (65-110); Potassium 3.5 mmol/L (3.4-5.0); Sodium 133 mmol/L (137-145)
[2021-05-25] MEDS: HYDROcodone/acetaminophen (*CRX) 7.5-325 MG TABLET 1 TAB PO ×2 (06:52→14:08)
[2021-05-25] MEDS: UMECLIDINIUM BROMIDE 62.5 MCG ELLIPTA 1 PUFF INHALATION (08:33)
[2021-05-25] MEDS: FLUTICASONE/SALMETEROL 115-21 MCG INHALER 1 PUFF 2 PUFF INHALATION (08:33)
[2021-05-25] MEDS: polyethylene glycoL 3350 17 GM POWD.PACK PO (08:51)
[2021-05-25] MEDS: SENNA/DOCUSATE SODIUM TABLET 2 TAB PO (08:51)
[2021-05-25] MEDS: ASPIRIN 325 MG ENTERIC TABLET 650 MG PO (08:52)
--- NOTE | 2021-05-25 09:47 | WPDANESPN ---
Anes - Prog Note Post-Op Date/Time: 05/25/21 09:47 Cardiovascular status: normal Respiratory status: normal Airway patency: baseline Mental status: baseline Post-Op hydration status: normal Vital Signs: Last Vital Signs Temp 96.9 F L 05/25/21 04:54 Pulse 86 05/25/21 04:54 Resp 14 05/25/21 04:54 BP 101/61 05/25/21 04:54 Pulse Ox 96 05/25/21 04:54 Pain Score (VAS): 0/10 I/O: Intake & Output 05/24/21 05/25/21 05/25/21 23:59 07:59 15:59 Intake Total 965 700 240 Output Total 150 100 Balance 815 600 240 Laboratory Tests 05/25/21 05:13 05/25/21 05:13 05/25/21 05/25/21 05:13 05:13 WBC 8.4 RBC 2.97 L Hgb 9.2 L D Hct 28.7 L MCV 96.6 MCH 31.0 MCHC 32.1 RDW 12.9 Plt Count 204 MPV 9.7 Immature Gran % (Auto) 0.2 Neut % (Auto) 74.9 H Lymph % (Auto) 17.2 L [place] % (Auto) 6.9 Eos % (Auto) 0.4 Baso % (Auto) 0.4 Lymph # (Auto) 1.44 [place] # (Auto) 0.6 Eos # (Auto) 0.0 Baso # (Auto) 0.0 Abs Immat Gran (auto) 0.02 Absolute Neuts (auto) 6.3 Absolute Nucleated RBC 0.0 Nucleated RBC % 0.0 Sodium 133 L Potassium 3.5 Chloride 105 Carbon Dioxide 22 Anion Gap 6 L BUN 12 D Creatinine 0.60 L Estim Creat Clear Calc 81 Estimated GFR > 60 Glucose 116 H Calcium 8.5 Patient Feedback: Patient satisfied with anesthetic care.
[2021-05-25 14:28] VITALS: BP 107/60; PULSE 83; RESP 18; TEMP 36.4; O2SAT 100
--- NOTE | 2021-05-25 16:49 | PM.DS ---
DS: Admitting Diagnosis Discharge Date 05/25/21 Admitting Diagnosis LEFT HIP DJD DS: Discharge Diagnosis Discharge Diagnosis (1) Degenerative joint disease (DJD) of hip: Qualifiers: Osteoarthritis type: primary Laterality: left Qualified Code(s): M16.12 - Unilateral primary osteoarthritis, left hip Code(s): M16.9 - Osteoarthritis of hip, unspecified Status: Acute DS: Summary Hospital Course Reason for hospitalization: L WILL Hospital Course: PATIENT UNDERWENT L WILL FOR HIP DJD. SHE DID VERY WELL WITH NO COMPLICATIONS. POST OP SHE WAS SENT TO THE ORTHO FLOOR WHERE SHE HAD PAIN CONTROL AND A REGULAR DIET AND DVT PROPHYLAXIS. SHE WAS UP WITH PT AND PASSED WITH NO PROBLEMS. SHE WAS STABLE FOR DC HOME ON POD 1. SHE WOULD CONTINUE ASA FOR DVT PROPHYLAXIS, SHE WOULD HAVE HOME HEALTH, SHE WOULD HAVE PT. SHE WOULD F/U IN 3 WEEKS WITH ORTHOPEDICS. Status at Discharge Functional status at discharge: uses cane/walker Overall status at discharge: patient is progressing back to baseline Time Spent with Patient Time attestation: Total time spent providing and/or coordinating discharge services: Time spent: Less than 30 minutes DS: Data Data Completed and Pending Labs on day of discharge: Labs from last 24 hours 05/25/21 05/25/21 05:13 05:13 WBC 8.4 RBC 2.97 L Hgb 9.2 L D Hct 28.7 L MCV 96.6 MCH 31.0 MCHC 32.1 RDW 12.9 Plt Count 204 MPV 9.7 Immature Gran % (Auto) 0.2 Neut % (Auto) 74.9 H Lymph % (Auto) 17.2 L [place] % (Auto) 6.9 Eos % (Auto) 0.4 Baso % (Auto) 0.4 Lymph # (Auto) 1.44 [place] # (Auto) 0.6 Eos # (Auto) 0.0 Baso # (Auto) 0.0 Abs Immat Gran (auto) 0.02 Absolute Neuts (auto) 6.3 Absolute Nucleated RBC 0.0 Nucleated RBC % 0.0 Sodium 133 L Potassium 3.5 Chloride 105 Carbon Dioxide 22 Anion Gap 6 L BUN 12 D Creatinine 0.60 L Estim Creat Clear Calc 81 Estimated GFR > 60 Glucose 116 H Calcium 8.5 Discharge Plan Discharge Patient Disposition: Home Health Service Discharge Instructions: Post Op Total Hip Replacement Instructions Dr. Brenden Otero [phone] ? Your dressing will be changed prior to your discharge. You will be sent home with one additional dressing to be changed in 5 days by the home health RN. Your incision was closed with dermabond, allow the dermabond to fall off naturally and do not disrupt incision healing. ? You may shower with your dressing but do not submerge in a bath tub. ? Do not drive or operate machinery until you are released by Dr. Otero. ? Do not walk without a walker for any reason until you are released by Dr. Otero. ? Continue to apply ice to the hip intermittently for additional pain relief. Protect your skin with a towel or pillow case. ? Continue to follow strict total hip replacement precautions. ? Your follow up appointment is indicated in your discharge instructions. ? Your medications have been sent to your pharmacy. ? Please contact our office with any questions/concerns regarding your hip at [phone]. Per Care Coordination: [facility] to Evaluate and Treat, RN/PT/OT [phone]. Patient Instructions: Antibiotic Form Stand Alone Forms: General Discharge Information Follow-up/Referrals: Brenden Oetro MD [Physician] - Keep Reg. Scheduled Appt. Discharge Medications: No Action albuterol sulfate [ProAir HFA] 90 mcg/actuation HFA aerosol inhaler 1 inhalation INHALATION Q4H PRN (Reason: Dyspnea) RF: 0 budesonide-formoterol 2 puff inhalation BID RF: 0 Incruse Ellipta 62.5 mcg/actuation blister with device 1 inhalation INHALATION QAM RF: 0 acetaminophen 650 mg Tablet Extended Release 1,300 mg PO Q12H PRN (Reason: Pain) RF: 0
== END 2021-05-25 18:00 | disposition home health service (06) ==
LOC: ANHSURGERY 08:59 → ANH2MED 15:14
PROVIDERS: PCP Physician Assistant; Visit Provider Orthopaedic Surgery
PROC: (CPT 27130; principal; 2021-05-24 11:00)
DX: M16.12 Unilateral primary osteoarthritis, left hip (principal); J44.9 Chronic obstructive pulmonary disease, unspecified; Z79.51 Long term (current) use of inhaled steroids; Z87.891 Personal history of nicotine dependence
CPT/HCPCS: 27130; 36415; 73501; 80048; 85014; 85018; 85025; 86850; 86900; 86901; 94640; 97110; 97116; 97161; 97165; 97535; A9270; C1776; J0171; J0690; J1100; J1170; J1885; J2250; J2270; J2405; J2704; J2710; J2795; J3010; J7030; J7120

== ENCOUNTER 2021-09-26 14:44 | Outpatient (CLI) | payer OTHER, SELFPAY ==
--- NOTE | ~2021-09-26 | US_ITS ---
US renal BI 09/26/2021 15:11 Procedure: Realtime transabdominal ultrasound of the kidneys and bladder. Indication: Recurrent hematuria Comparison: CT dated 05/18/2015 Findings: Renal echotexture is normal bilaterally without hydronephrosis, contour deforming mass or r enal calculus. The right kidney measures 11.7 cm and left kidney measures 10.7 cm. Bladder within no rmal limits. Impression: 1: Unremarkable renal ultrasound. No stones, masses or hydronephrosis. Reviewed, dictated and finalized at location A. Impression: 1: Unremarkable renal ultrasound. No stones, masses or hydronephrosis.
== END 2021-09-26 14:45 | disposition home or self-care (01) ==
PROVIDERS: PCP Physician Assistant; Visit Provider Physician Assistant
DX: N02.9 Recurrent and persistent hematuria with unspecified morphologic changes (principal)
CPT/HCPCS: 76775

== ENCOUNTER → 2021-10-21 11:44 | Outpatient (CLI) | payer OTHER, SELFPAY ==
--- NOTE | ~2021-10-21 | CT_ITS ---
EXAMINATION:CT lung screening DATE: 10/21/2021 12:02 INDICATION: Personal history of nicotine dependence. Smoker who quit 1 year ago with 42 pack year his tory. TECHNIQUE: Computed tomography (CT) of the chest was performed without intravenous contrast. Automate d exposure control and iterative reconstruction technique were employed. The dose-length product (DLP ) was 133.48 mGy-cm. COMPARISON: Chest CT 10/19/2020 FINDINGS: There is a 10 mm nonsolid nodule in right upper lobe. There is mild atelectasis bilaterally . A calcified left lung nodule is consistent with old granulomatous disease. No pleural effusion. The heart size is normal. No pericardial effusion. There is mild thoracic spondylosis. There is mild chr onic anterior wedging of T6 and T7 vertebral bodies. IMPRESSION: 1. Lung-RADS category 2: Benign appearance or behavior. Continue annual screening with noncontrast lo w-dose chest CT in 12 months. Reviewed, dictated and finalized at location A. IMPRESSION: 1. Lung-RADS category 2: Benign appearance or behavior. Continue annual screeni ng with noncontrast low-dose chest CT in 12 months.
== END ==
PROVIDERS: PCP Physician Assistant; Visit Provider Nurse Practitioner Family
DX: Z12.2 Encounter for screening for malignant neoplasm of respiratory organs (principal); Z87.891 Personal history of nicotine dependence
CPT/HCPCS: 71271

== ENCOUNTER → 2022-10-23 10:24 | Outpatient (CLI) | payer OTHER, SELFPAY ==
--- NOTE | ~2022-10-23 | CT_ITS ---
CT Scan of the Chest without Contrast: Clinical Indication: Lung cancer screening, personal history of tobacco dependence Technique: Contiguous sections were acquired throughout the chest without intravenous contrast. Dose reduction technique was used on this scan by utilizing automated exposure control and iterative recon struction technique. The dose-length product (DLP) was 137.25 mGy-cm. COMPARISON: 10/21/2021, 10/19/2020, 09/09/2019 Findings: There is no evidence of any significant mediastinal, hilar or axillary lymphadenopathy. The mediastin al soft tissues appear normal. There is no evidence of pleural or pericardial effusion. There is a new area of mild groundglass opacity in the right upper lobe (axial image 34 for example). Stable subsolid nodule in the right upper lobe (axial image 32). Images through the upper abdomen reveal no abnormalities. Impression: Lung RADS 2: Benign appearance. 12 month follow-up screening CT advised. Reviewed, dictated and finalized at [facility]. Impression: Lung RADS 2: Benign appearance. 12 month follow-up screening CT advised.
== END ==
PROVIDERS: PCP Physician Assistant; Visit Provider Nurse Practitioner Family
DX: Z12.2 Encounter for screening for malignant neoplasm of respiratory organs (principal); Z87.891 Personal history of nicotine dependence
CPT/HCPCS: 71271

== ENCOUNTER 2023-02-01 12:35 | Outpatient (CLI) | payer OTHER, SELFPAY ==
--- NOTE | ~2023-02-01 | XR_ITS ---
Clinical Indication: Chest pain PA and lateral views of the chest: Comparison: 12/18/2017 Findings: The lungs are clear, without evidence of focal consolidation or pleural effusion. Cardiome diastinal silhouette is within normal limits. Bones and soft tissues are unremarkable. Impression: Normal chest. Reviewed, dictated and finalized at location . Impression: Normal chest.
== END 2023-02-01 12:36 | disposition home or self-care (01) ==
PROVIDERS: PCP Physician Assistant; Visit Provider Nurse Practitioner Family
DX: R06.09 Other forms of dyspnea (principal); R07.81 Pleurodynia
CPT/HCPCS: 71046

== ENCOUNTER 2023-05-24 08:18 | Outpatient (CLI) | payer OTHER, SELFPAY ==
--- NOTE | ~2023-05-24 | CT_ITS ---
CT Scan of the Chest without Contrast: Clinical Indication: Shortness of breath Technique: Contiguous sections were acquired throughout the chest without intravenous contrast. Dose reduction technique was used on this scan by utilizing automated exposure control and iterative recon struction technique. The dose-length product (DLP) was 347.93 mGy-cm. COMPARISON: 10/23/2022 Findings: There is no evidence of any significant mediastinal, hilar or axillary lymphadenopathy. The mediastin al soft tissues appear normal. There is no evidence of pleural or pericardial effusion. Stable small subcentimeter nodule in the right upper lobe is unchanged. Additional vague groundglass opacity right upper lobe seen on most recent prior exam is resolved. Images through the upper abdomen reveal no abnormalities. Impression: Stable subcentimeter, semisolid right upper lobe pulmonary nodule. Additional vague groundglass opacity seen in the right upper lobe on most recent prior exam is resolv ed. Reviewed, dictated and finalized at location . 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 Additional vague groundglass opacity seen in the right upper lobe on most recen t prior exam is resolved.
== END 2023-05-24 08:19 ==
LOC: MICIMG 08:19
PROVIDERS: PCP Physician Assistant; Visit Provider Nurse Practitioner Family
DX: R06.02 Shortness of breath (principal); R91.8 Other nonspecific abnormal finding of lung field; R07.89 Other chest pain
CPT/HCPCS: 71250

== ENCOUNTER 2023-05-24 09:59 | Outpatient (CLI) | payer OTHER, SELFPAY ==
--- NOTE | 2023-05-24 16:57 | WPDPFTINT ---
PFT Procedure Performed PFT Procedure Performed Spirometry with Pre/Post Bronchodilator Plethysmography (Lung Vol) Diffusing Cap (DLCO) Flow Vol Loop PFT Interpretation This is a pulmonary function test with pre and post-bronchodilator spirometry, plethysmography and diffusing capacity. The test was performed and results interpreted in accordance with the 2019 and 2005 ATS/ERS Task Force guidelines respectively using the Global Lung Function Initiative-2012 reference equations. Patient demonstrated good effort and cooperation. Reproducibility criteria were met. The quality of the pre bronchodilator spirometry maneuver was Grade A and post bronchodilator spirometry maneuver was Grade A. Findings: Spirometry: There is decreased maximal expiratory airflow at low lung volumes with concave expiratory flow tracing. The contour the inspiratory flow tracing is normal. The pre bronchodilator FVC is 3.65 L, 107% predicted. The pre bronchodilator FEV1 is 2.42 L, 91% predicted. The pre bronchodilator FEV1: FVC ratio 66%. The post bronchodilator FVC is 3.70 L, representing a 1% increase. The post bronchodilator FEV1 is 2.41 L, representing a 1% decrease. The post bronchodilator FEV1: FVC ratio 65%. Plethysmography: The total lung capacity is 5.68 L, 103% predicted. The functional residual capacity is 2.58 L, 82% predicted. The residual volume is 1.99 L, 91% predicted. Diffusing capacity: The diffusing capacity unadjusted for hemoglobin and carboxyhemoglobin is 17.7, 79% predicted. The diffusing capacity adjusted for alveolar volume is 3.39, 80% predicted. In comparison to previous pulmonary function testing on 09/09/2019 the post bronchodilator FVC is unchanged from 4.19 L to 3.70 L. The post bronchodilator FEV1 is unchanged from 2.59 L to 2.41 L. The total lung capacity is decreased from 7.13 L to 5.68 L. The functional residual capacity is decreased from 4.31 L to 2.58 L. The residual volume has decreased from 2.93 L to 1.99 L. The diffusing capacity unadjusted for hemoglobin and carboxyhemoglobin is decreased from 20.6 to 17.7. The diffusing capacity adjusted for alveolar volume is unchanged from 3.37 to 3.39. Impression: There is a mild obstructive abnormality with a normal FEV1 and without significant improvement after inhaling a single dose of albuterol. The lung volumes are normal. The DLCO is normal. In comparison to previous pulmonary function testing on 09/09/2019 there has been a greater than anticipated time dependent decrease in the total lung capacity, functional residual capacity, residual volume and diffusing capacity unadjusted for hemoglobin and carboxyhemoglobin with no significant change in the FVC, FEV1 or diffusing capacity adjusted for alveolar volume. Clinical correlation is recommended.
== END 2023-05-24 10:00 | disposition home or self-care (01) ==
LOC: ANHIMG 10:00
PROVIDERS: PCP Physician Assistant; Visit Provider Nurse Practitioner Family
DX: R06.02 Shortness of breath (principal); R94.2 Abnormal results of pulmonary function studies
CPT/HCPCS: 94060; 94726; 94729

== ENCOUNTER 2023-07-01 10:02 | Emergency (ER) | payer OTHER, SELFPAY ==
--- NOTE | 2023-07-01 11:02 | ED.URI ---
HPI - URI/Sore Throat General Chief Complaint: Upper Respiratory Infection Stated Complaint: congestion Time Seen by Provider: 07/01/23 11:17 Source: patient Mode of arrival: ambulatory Limitations: no limitations History of Present Illness HPI Narrative: Emperatriz is a 63-year-old female patient presenting to the clinic today with complaints of nasal congestion, headache, sinus pressure, cough, ear pain, and sore throat. She reports she was treated for a sinus infection on June 12. Reports that her symptoms did slightly improve however on Sunday her symptoms began again. Contacted her PCP and they started her on another round of Augmentin. States she was initially placed on Augmentin and prednisone. MD elicited complaint: cough, sore throat, nasal congestion, sinus pain and other (Headache, ear pain) Related Data Home Medications Medication Instructions Recorded Confirmed desoximetasone 0.05 % topical topical 05/02/23 05/02/23 ointment naproxen sodium 220 mg tablet 440 mg PO DAILY 05/02/23 05/02/23 (Aleve) amoxicillin 875 mg-potassium tablet 07/01/23 clavulanate 125 mg tablet Allergies Allergy/AdvReac Type Severity Reaction Status Date / Time doxycycline Allergy Severe Hives Verified 07/01/23 11:24 tixocortol Allergy Rash Verified 07/01/23 11:24 Review of Systems Review of Systems: Pertinent positives per HPI. Patient denies any fever, chills, rash, visual changes, dizziness, shortness of breath, chest pain, palpitations, nausea, vomiting, diarrhea, constipation, abdominal pain, or any urinary issues. PMFSH Past Medical History Medical History Arthritis Asthma Bilateral hip pain COPD (chronic obstructive pulmonary disease) Degenerative joint disease (DJD) of hip Eczema History of tobacco abuse Hoarseness Shortness of Breath Wears glasses Surgical History Surgical History S/P total right hip arthroplasty Family History Family History Mother COPD (chronic obstructive pulmonary disease) Diabetes mellitus Bladder cancer Father COPD (chronic obstructive pulmonary disease) Other Arthritis Asthma Social History Social History (Reviewed 07/01/23 @ 11:03 by BHAVANI Avila Smoking packs per day: 1 Smoking cigarettes per day: 20.0 Years smoked: 39 Smoking pack-years: 39.00 Smoking status: Former smoker Tobacco type: cigarettes Second hand tobacco smoke exposure: No Smoking end date: 07/09/19 Alcohol intake: current Drinks per week: 4 Substance use: never Substance use type: does not use Living arrangements: with family Gender identity (if verbalized by the patient): Female Spiritual care concerns: No Comments At the time of my signature, I reviewed and agree with the nursing past medical, surgical, social, and family history. There is no relevant family history pertinent to the patient complaint. Exam Narrative: General: Well-developed, well nourished, in no apparent distress Head: Normocephalic, atraumatic Eyes: Pupils equally round and reactive to light bilaterally, EOM intact, sclera and conjunctive clear, no discharge, lids normal Ears: TMs intact and clear, ear canals clear, no drainage, grossly hearing normal. Nose: Nares patent, clear nasal discharge, no inflammation, no sinus tenderness. Mouth: Oral pharynx red without lesions or masses, good dentition, MMM. Neck: Supple, trachea midline, no enlargement of anterior or posterior cervical nodes, no thyroid masses or goiter palpable. Cardio: Regular rate and rhythm, s1 and s2 normal, no murmur appreciated. Resp: Clear to auscultation bilaterally, no rhonchi, rales, wheezing or rubs Course Course Emergency Course: Portions of this record may have been created with voice recognition software.
[2023-07-01 11:09] VITALS: BP 150/87; PULSE 83; RESP 18; TEMP 36.3; O2SAT 98
== END 2023-07-01 11:47 | disposition home or self-care (01) ==
PROVIDERS: Emergency Provider Nurse Practitioner Family; PCP Physician Assistant
DX: U07.1 COVID-19 (principal); J44.9 Chronic obstructive pulmonary disease, unspecified; Z87.891 Personal history of nicotine dependence
CPT/HCPCS: 87426; 87804; 99213; C9803; G0463

== ENCOUNTER 2024-05-06 11:19 | Outpatient (CLI) | payer BC, SELFPAY ==
--- NOTE | ~2024-05-06 | CT_ITS ---
CT Scan of the Chest without Contrast: Clinical Indication: Lung cancer screening, nicotine dependence Technique: Contiguous sections were acquired throughout the chest without intravenous contrast. Dose reduction technique was used on this scan by utilizing automated exposure control and iterative recon struction technique. The dose-length product (DLP) was 129.17 mGy-cm. COMPARISON: 05/24/2023 Findings: There is no evidence of any significant mediastinal, hilar or axillary lymphadenopathy. The mediastin al soft tissues appear normal. There is no evidence of pleural or pericardial effusion. 9 mm semisolid nodule noted in the right upper lobe (axial image 34), possibly minimally increased fr om prior exam. Images through the upper abdomen reveal no abnormalities. Impression: Lung RADS 2: Benign appearance. 12 month follow-up screening CT advised. Reviewed, dictated and finalized at [facility]. Impression: Lung RADS 2: Benign appearance. 12 month follow-up screening CT advised.
== END 2024-05-06 11:20 | disposition home or self-care (01) ==
PROVIDERS: PCP Nurse Practitioner Family; Visit Provider Nurse Practitioner Family
DX: Z12.2 Encounter for screening for malignant neoplasm of respiratory organs (principal); Z87.891 Personal history of nicotine dependence
CPT/HCPCS: 71271

== ENCOUNTER 2025-04-07 09:54 | Outpatient (CLI) | payer BC, SELFPAY ==
--- NOTE | ~2025-04-07 | XR_ITS ---
EXAMINATION: XR chest 2V, 04/07/2025 9:59 CDT HISTORY: L sided chest wall pain COMPARISON: No comparisons available. Technique: 2 views obtained. Findings: The lungs are clear, no effusion. No pneumothorax. Heart is normal size. Mediastinal and hilar contours are within normal limits. Bony thorax no acute abnormality. Impression: No acute cardiopulmonary abnormality. Reviewed, dictated and finalized at location P. Impression: No acute cardiopulmonary abnormality.
== END 2025-04-07 09:55 | disposition home or self-care (01) ==
LOC: MICIMG 09:56
PROVIDERS: PCP Physician Assistant; Visit Provider Physician Assistant
DX: R07.89 Other chest pain (principal)
CPT/HCPCS: 71046

== ENCOUNTER 2025-05-11 11:18 | Outpatient (CLI) | payer BC, SELFPAY ==
--- NOTE | ~2025-05-11 | CT_ITS ---
EXAMINATION: CT lung screening DATE: 05/11/2025 11:35 INDICATION: Personal history of nicotine dependence TECHNIQUE: Computed tomography (CT) of the chest was performed without intravenous contrast. The dose-length product was 132.97 mGy-cm. Automated exposure control and iterative reconstruction technique were employed. COMPARISON: CT dated 05/06/2024 FINDINGS: Heart size normal. No thoracic lymphadenopathy. No significant pleural or pericardial effusion. There is a hyperdense cyst of the right kidney laterally. Mild atherosclerosis without evidence for aneurysm. Slightly increased size of subsolid 8-9 mm nodule right upper lobe allowing for differe nces of technique. The coronal reconstruction images demonstrate a more solid appearance to the nodule, possibly related to technique. There are smaller nodules measuring 2 mm or less primarily in the upper lobes. No endobronchial lesions. IMPRESSION: 1. Lung-RADS category 3: Probably benign. Further evaluation is recommended with noncontrast low-dose chest CT in 6 months. Reviewed, dictated and finalized at location O. OWS ASSEMBLER IMPRESSION: 1. Lung-RADS category 3: Probably benign. Further evaluation is recommended wit h noncontrast low-dose chest CT in 6 months.
--- OUTSIDE RECORDS SUMMARY | 2025-05-11 12:56 | XMS_ITS | Encounter Summary ---
Author Organization [facility] Address [address] [place] [address] Care Team Providers Care Payroll And Benefits Analyst Name Role Phone Parent, Lolly Francis STEPHANIE Primary Care Provider [phone] Encounter Details Date Type Department Care Team (Late st Contact Info) Description 10/23/2023 Telephone [facility] - Dermatology [address] [place] [address] Herminio Buckley MD [address] [phone] Social History Tobacco Use Types Packs/Day Years Used Date Smoking Tobacco: Never Smokeless Tobacco: Never Comments Unknown Sex and Gender Information Value Date Recorded Sex Assigned at Not on file 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 Gender Identity Not on file Sexual Orientation Not on file documented as of this encounter Progress Notes * Etsefani Preciado - 10/25/2023 3:43 PM CDT Medication Prior Authorization: Medication: Opzelura 1.5% cream 60 gram Status: Approved 10/23/23 through 10/22/24 Submitted via: Cover My Meds (Bach: BHPHUPLP) Insurance: [employer] (p: [phone]) (f: [phone]) Case/Reference number: ID: [id number] RX Card Billing Info: BIN: [id number] PCN: [id number] GROUP: [id number] ID: [id number] PA approval notice uploaded to media tab Estefani Preciado- Pharmacy [facility] (Dermatology) documented in this encounter Miscellaneous Notes * Telephone Encounter - Estefani Preciado - 10/25/2023 3:48 PM CDT Confirmed with Stephanie patient picked up Opzelura today. * Telephone Encounter - Estefani Prceiado - 10/23/2023 7:17 AM CDT PA submitted forcontinuation of therapy Opzelura 1.5% cream 60 gram via [employer] currently waiting on decision. Bach: BHPHUPLP : Provider:[id number] ([facility]) Estefani Preciado Associate Doctor - Pharmacy [facility] documented in this encounter Plan of Treatment Not on file documented as of this encounter Visit Diagnoses Not on filedocumented in this encounter Care Teams Payroll And Benefits Analyst Relationship Specialty Start Date End Date Lolly Avina PA [address] [place] [phone] PCP - General Physician Copy Operator 08/14/23 documented as of this encounter
--- OUTSIDE RECORDS SUMMARY | 2025-05-11 12:56 | XMS_ITS | Clinical Summary ---
Author Organization [facility] Administrative Offices Address [address] [place] [address] Care Team Providers Care Law Enforcement Officer Name Role Phone Unavailable Primary Care Provider Unavailabl e Family History Medical History Relation Name Comments Breast Cancer Neg Hx Ovarian Cancer Neg Hx Social History Tobacco Use Types Packs/Day Years Used Date Smoking Tobacco: Never Assessed Comments Unknown Sex and Gender Information Value Date Recorded Sex Assigned at Not on file Legal Sex Female 11:07 AM CDT Gender Identity Not on file Sexual Orientation Not on file Plan of Treatment Health Maintenance Due Date Last Done Comments DTAP/TDAP/TD VACCINES (1 - Tdap) 1979 COLORECTAL SCREENING 2005 Colorectal Cancer Screening 2005 FIT-DNA Q 3 years 2005 FIT/FOBT Q 1 year 2005 Flex Sig/CT Colonography Q 5 years 2005 PNEUMOCOCCAL VACCINE 50+ YEARS (1 of 1 - PCV) 04/12/20 10 ZOSTER VACCINE (1 of 2) 2010 BREAST CANCER SCREENING 04/17/2015 04/17/2014 INFLUENZA VACCINE (#1) 2025 OSTEOPOROSIS SCREENING 2025 RSV VACCINE (60+ or ) (1 - 1-dose 75+ series) 2035 Procedures Procedure Name Priority Date/Time Associated Diagnosis Comments MAMMO SCREEN BILAT W OR WO CAD Routine 04/17/2014 2:03 PM CDT Other screening mammogram from Last 3 Months or Most Recently Relevant to Health Maintenance Results * MAMMO DIGITAL SCREEN BILAT (04/17/2014 2:03 PM CDT) Anatomical Region Laterality Modality Breast Bilateral Mammography Narrative 04/20/2014 2:23 PM CDT Bilateral digital screening mammogram with computer assisted diagnosis History: Annual screening exam. Findings: A bilateral screening mammogram was performed. There are no comparison studies. There are scattered fibroglandular densities. No new masses, suspicious calcifications, or areas of asymmetry or distortion are identified. CAD was utilized. Impression: Negative screening mammogram. Recommendation: Routine annual follow-up Overall Assessment: Birads Category 1: Negative Procedure Note Go Kendrick MD - 04/20/2014 Bilateral digital screening mammogram with computer assisted diagnosis History: Annual screening exam. Findings: A bilateral screening mammogram was performed. There are nocomparison studies. There are scattered fibroglandular densities. No newmasses, suspicious calcifications, or areas of asymmetry or distortionare identified. CAD was utilized. Impression: Negative screening mammogram. Recommendation: Routine annual follow-up Overall Assessment: Birads Category 1: Negative External Provider [facility] MAMMO ORDERABLES Final R esult from Last 3 Months or Most Recently Relevant to Health Maintenance Insurance OPEN ACCESS O
--- OUTSIDE RECORDS SUMMARY | 2025-05-11 12:56 | XMS_ITS | Clinical Summary ---
Author Organization [facility] Address [address] [facility] [place] [address] Care Team Providers Care Molecular Biology Director Name Role Phone Parent, Lolly Francis STEPHANIE Primary Care Provider [phone] Source Comments [facility],non-owned Affiliates and Associated Physician Practices is amultiple site organization consisting of ambulatory clinics and hospital sitesin [place], [place], [place] and [place]. This disclosure is being madepursuant to the Care Everywhere program and may not contain all information available regarding this patient. Last updated 18.[facility] Allergies Active Allergy Reactions Criticality Noted Date Comments Doxycycline Urticaria Medium 01/30/2012 Tixocortol Rash Medium 08/14/2023 Medications * Be aware that medications may not be up to date on this document. Alwaysverify current medications with the patient. Trelegy Ellipta 100-62.5-25 MCG/ACT 4 Active albuterol HFA (Proventil; Ventolin; Proair) 108 (90 Base) MCG/ACT inhaler 4 Active montelukast (Singulair) 10 MG tablet 4 Active azelastine (Astelin) 0.1 % nasal spray USE 1 SPRAY IN EACH NOSTRIL EVERY 12 HOURS 4 Active desoximetasone (Topicort-Lp) 0.05 % ointmentIndicat ions:Other specified dermatitis Apply to affected area 2 times daily 60 g 5 4 Active Ruxolitinib Phosphate (Opzelura) 1.5 % CREAIndications :Other specified dermatitis 1 Application by Apply externally route 2 times daily 60 g 5 4 Active Active Problems No known active problems Social History Tobacco Use Types Packs/Day Years Used Date Smoking Tobacco: Never Smokeless Tobacco: Never Tobacco Cessation:Counseling Given: Not Answered Comments Unknown Sex and Gender Information Value Date Recorded Sex Assigned at Not on file 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 Gender Identity Not on file Sexual Orientation Not on file Plan of Treatment Health Maintenance Due Date Last Done Comments BONE DENSITY TESTING 1960 COLOGUARD (AGES 45-75) - COLON CA SCREENING 1960 COLON MONITORING 1960 COLONOSCOPY - COLON CA SCREENING 1960 CT COLONOGRAPHY - COLON CA SCREENING 1960 Colorectal Cancer Screening 1960 FIT - COLON CA SCREENING 1960 FLEX SIG - COLON CA SCREENING 1960 LIPID TESTING 1960 HIV SCREENING 1975 HEPATITIS C SCREENING 04/08/1978 DTAP/TDAP/TD VACCINES (1 - Tdap) 1979 PAP SMEAR 1981 PNEUMOCOCCAL VACCINE 50+ (1 of 1 - PCV) 2010 ZOSTER VACCINE (1 of 2) 2010 MAMMOGRAM 04/17/2016 04/17/2014 DEPRESSION SCREENING 07/09/2024 COVID-19 VACCINE (3 - 2024- season) 2025 07/03/2021, 09/11/2020 INFLUENZA VACCINE (#1) 2025 , 05/31/2020, 04/25/2017, Additional history exists Respiratory Syncytial Virus (RSV) Vaccine Pt: or over 60 yrs (1 - 1-dose 75+ series) 2035 HEPATITIS B VACCINE Aged Out No longe r eligible based on patient's age to complete this topic HIB VACCINE Aged Out No longer eligi ble based on patient's age to complete this topic HPV VACCINE Aged Out No longer eligi ble based on patient's age to complete this topic MENINGOCOCCAL (Group B) VACCINE SHARED DECISION-MAKING Aged Out No longer eligible based on patient's age to complete this topic MENINGOCOCCAL GROUPS A/C/Y/W VACCINE Aged Out No longer eligible based on patient's age to complete this topic Insurance ANTHEM Care Teams Molecular Biology Director Relationship Specialty Start Date End Date Parent, STEPHANIE De Santiago [address] [place] [phone] PCP - General Physician Inspector Tester Sorter 08/14/23
--- OUTSIDE RECORDS SUMMARY | 2025-05-11 12:56 | XMS_ITS | Encounter Summary ---
Author Organization [facility] Address [address] [facility] [address] Care Team Providers Care Oven Builder Name Role Phone ParentLolly Primary Care Provider Encounter Details Date Type Department Care Team (Late st Contact Info) Description 08/22/2021 Lab Requisition [facility] [address] [facility], [place] [address] Jayson Pineda MD [address] [place] [id number] Social History Tobacco Use Types Packs/Day Years Used Date Smoking Tobacco: Never Assessed Comments Unknown Sex and Gender Information Value Date Recorded Sex Assigned at Not on file 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 Gender Identity Not on file Sexual Orientation Not on file documented as of this encounter Plan of Treatment Not on file documented as of this encounter Procedures Procedure Name Priority Date/Time Associated Diagnosis Comments DERMATOPATHOLOGY Routine 08/22/2021 12:0 0 AM SUPPLY TECH documented in this encounter Results * DERMATOPATHOLOGY (08/22/2021 12:00 AM SUPPLY TECH) Case Report Dermatopathology Report Case: [id number] Authorizing Provider: Jyason Pineda MD Collected: 08/22/2021 12:00 AM Ordering Location: [facility] Received: 08/22/2021 04:33 PM Pathologist: Lynne Senior MD Specimen: Skin, left thigh 5:06 PM SUPPLY TECH DERMATOPATHOLOGY LABORATORY Final Diagnosis Specimen A. SKIN, left thigh: SPONGIOTIC DERMATITIS WITH EOSINOPHILS (L30.8) (see microscopic description and comment) 2 5:06 PM [facility] DERMATOPATHOLOGY LABORATORY at 1706 SUPPLY TECH Clinical History ACD vs other. Path # [id number]. 2 5:06 PM [facility] DERMATOPATHOLOGY LABORATORY Gross Description Specimen A: Received is one formalin filled container labeled with the patient's name and designated left thigh. The specimen consists of a shave biopsy measuring [id number]. Jar 0. 2 5:06 PM [facility] DERMATOPATHOLOGY LABORATORY Microscopic Description Specimen A. SKIN, left thigh: There is focal parakeratosis and spongiosis. In the dermis there is a somewhat wedged shaped, mainly superficial perivascular lymphohistiocytic inflammatory infiltrate with eosinophils. Additional deeper sections were obtained and reviewed. Grocott's methenamine silver (GMS) stain is negative for fungal elements in the sections examined. COMMENT: The histological differential diagnosis includes a arthropod bite reaction, contact dermatitis, an eczematous drug eruption, and less likely the urticarial phase of bullous pemphigoid. 2 5:06 PM [facility] DERMATOPATHOLOGY LABORATORY Disclaimer An external and internal positive and negative controls are appropriate for the histochemical, immunohistochemical and immunofluorescence stain(s) in this case (if any), except where stated explicitly. The performance characteristics of the stain(s) cited in this report were developed and its performance characteristic determined by the Dermatopathology Laboratory at [facility], directed by Dr. Mali Busch. These tests need not be, and therefore are not, approved by the [place] Food and Drug Administration. The tests are used for clinical purposes. Billing Codes Specimen Charges Stain Charges 32243 1 [id number] 1 2 5:06 PM [facility] DERMATOPATHOLOGY LABORATORY Embedded Images 2 5:06 PM [facility] DERMATOPATHOLOGY LABORATORY Pathology/Cytolog y TISSUE SPECIMEN FROM SKIN / Unknown 08/22/2021 08/22/2021 4:33 PM [facility] us Jayson Pineda MD LAB - PATHOLOGY/CYTOLOGY ORDER KATRIN Final Result DERMATOPATHOLOGY LABORATORY [facility] - Department of Dermatology [facility] [address] [place] [address], [address] [phone] documented in this encounter Visit Diagnoses Not on filedocumented in this encounter Care Teams Oven Builder Relationship Specialty Start Date End Date ParentLolly PA [address] [phone] PCP - General Physician Leather Scraper 08/14/23 documented as of this encounter
== END 2025-05-11 11:19 | disposition home or self-care (01) ==
PROVIDERS: PCP Physician Assistant; Visit Provider Nurse Practitioner Family
DX: Z12.2 Encounter for screening for malignant neoplasm of respiratory organs (principal); Z87.891 Personal history of nicotine dependence
CPT/HCPCS: 71271